=== PATIENT | female | born 1985 | race Caucasian/White ===

== ENCOUNTER 2017-02-18 | Emergency (ER) | payer MEDICAID ==
[2017-02-18 01:05] LABS: Basophils % (Auto) 0.9 % (0.0-1.8); Eosinophils % (Auto) 1.6 % (0.0-4.3); Hematocrit 39.5 % (30.3-42.9); Hemoglobin 12.8 gm/dl (10.1-14.3); Mean Corpuscular HGB Conc 32 % (30-34); Mean Corpuscular Hemoglobin 28 pg (28-32); Mean Corpuscular Volume 88 fl (79-97); Platelet Count 276 K/mm3 (140-440); Red Blood Count 4.52 M/mm3 (3.65-5.03); Red Cell Distribution Width 15.6 % (13.2-15.2); White Blood Count 7.6 K/mm3 (4.5-11.0)
[2017-02-18 01:28] LABS: Anion Gap 19 mmol/L; BUN/Creatinine Ratio 8.75; Blood Urea Nitrogen 7 mg/dL (7-17); Calcium 9.7 mg/dL (8.4-10.2); Carbon Dioxide 25 mmol/L (22-30); Chloride 97.4 mmol/L (98-107); Glucose 105 mg/dL (65-100); Sodium 138 mmol/L (137-145)
[2017-02-18] MEDS ORDERED: K-DUR PO ONE ×2 (10:22→10:45)
[2017-02-18] MEDS ORDERED: NACL 0.9% 1000 ML 1,000 ML IV ONE (10:34)
[2017-02-18] MEDS ORDERED: TYLENOL PO ONE (10:34)
[2017-02-18] MEDS ORDERED: MORPHINE IV ONE (10:34)
--- NOTE | 2017-02-18 10:34 | Emergency Department Report ---
ED General Adult HPI - General Chief complaint: Chest Pain Stated complaint: CHEST PAIN Time Seen by Provider: 02/18/17 10:11 Source: patient, EMS, RN notes reviewed, old records reviewed Mode of arrival: Ambulatory Limitations: No Limitations - History of Present Illness Initial comments: This is a 31-year-old female. She is previously unknown to me. She reports a past medical history of obesity, hypertension, myasthenia gravis. The patient presents to ER with 2 complaints. The patient's first complaint is dental pain. It is in the bilateral lower posterior molars. It is sharp and achy. It increases with chewing and with hot and cold liquids. It decreases with rest. There is no stridor or dysphonia. The patient's other complaint is chest pain. The chest pain is left-sided. It is around the left breast and nipple. It does not radiate to the back, arms or neck. There is no nausea, vomiting or diaphoresis. There is no leg pain. There is no leg swelling. No recent trips greater than 4 hours. Patient describes nonspecific shortness of breath. Of note, patient recently admitted to the hospital for chest pain risk stratification, and had a negative nuclear stress test. EMS documents that the patient had reproducible chest wall pain, and also the patient appeared to be quite anxious. The chest pain does not have any exacerbating or relieving factors. -: Gradual, days(s) Location: mouth, chest Severity scale (0 -10): 6 Quality: aching Consistency: intermittent Improves with: other (as per history of present illness) Worsens with: other (as per history of present illness) Associated Symptoms: chest pain. denies: confusion, loss of appetite, malaise, nausea/vomiting, rash, syncope, weakness - Related Data Home Medications Medication Instructions Recorded Confirmed Last Taken Hydrochlorothiazide [HCTZ] 25 mg PO QDAY 02/11/17 02/11/17 Unknown Pyridostigmine [Mestinon] 2 tab PO Q6H 02/11/17 02/11/17 Unknown azaTHIOprine [Imuran] 50 mg PO BID 02/11/17 02/11/17 Unknown predniSONE [Deltasone] 40 mg PO QDAY 02/11/17 02/11/17 Unknown Previous Rx's Medication Instructions Recorded Last Taken Type Chlorhexidine Mouthwash [Peridex] 15 ml MM BID #1 bottle 02/18/17 Unknown Rx Potassium Chloride [K-Dur] 20 meq PO BID #20 tab 02/18/17 Unknown Rx oxyCODONE [Roxicodone] 5 mg PO Q6HR PRN #15 tablet 02/18/17 Unknown Rx Allergies Allergy/AdvReac Type Severity Reaction Status Date / Time naproxen sodium [From Aleve] Allergy Swelling Verified 02/11/17 13:30 ED Review of Systems ROS: Stated complaint: CHEST PAIN Other details as noted in HPI Constitutional: denies: fever, malaise, weakness Eyes: denies: vision change ENT: dental pain. denies: epistaxis Respiratory: shortness of breath Cardiovascular: chest pain Gastrointestinal: denies: vomiting Genitourinary: as per HPI Musculoskeletal: as per HPI Skin: as per HPI Neurological: as per HPI Psychiatric: as per HPI, anxiety ED Past Medical Hx - Past Medical History Hx Congestive Heart Failure: No Hx Diabetes: No Hx Asthma: No Hx COPD: No Additional medical history: Myasthenia Gravis - Surgical History Additional Surgical History: Thymas Gland surgery 2011 - Social History Smoking Status: Unknown if ever smoked - Medications Home Medications: Home Medications Medication Instructions Recorded Confirmed Last Taken Type Hydrochlorothiazide [HCTZ] 25 mg PO QDAY 02/11/17 02/11/17 Unknown History Pyridostigmine [Mestinon] 2 tab PO Q6H 02/11/17 02/11/17 Unknown History azaTHIOprine [Imuran] 50 mg PO BID 02/11/17 02/11/17 Unknown History predniSONE [Deltasone] 40 mg PO QDAY 02/11/17 02/11/17 Unknown History Chlorhexidine Mouthwash [Peridex] 15 ml MM BID #1 bottle 02/18/17 Unknown Rx Potassium Chloride [K-Dur] 20 meq PO BID #20 tab 02/18/17 Unknown Rx oxyCODONE [Roxicodone] 5 mg PO Q6HR PRN #15 tablet 02/18/17 Unknown Rx ED Physical Exam - General Limitations: No Limitations General appearance: alert, in no apparent distress - Head Head exam: Present: atraumatic, normocephalic - Eye Eye exam: Present: normal appearance, PERRL, EOMI. Absent: nystagmus - ENT ENT exam: Present: normal exam, normal orophraynx, mucous membranes moist, other (patient has poor dentition. Numerous impacted posterior wisdom teeth are noted. There is no stridor or dysphonia. There is no abscess. There is no elevation of the base of the tongue.) - Neck Neck exam: Present: normal inspection - Respiratory Respiratory exam: Present: normal lung sounds bilaterally, chest wall tenderness (there is no redness, pus or streaking around the breast. There is no nipple discharge.), other (there is reproducible chest wall tenderness. During the chest and breast examination, I am escorted by nurse Silvia Amezcua). Absent: respiratory distress, wheezes, rales, rhonchi, stridor - Cardiovascular Cardiovascular Exam: Present: normal rhythm, tachycardia, normal heart sounds. Absent: systolic murmur, diastolic murmur, rubs, gallop - GI/Abdominal GI/Abdominal exam: Present: soft, normal bowel sounds. Absent: distended, tenderness, guarding, rebound, rigid, pulsatile mass - Extremities Exam Extremities exam: Present: normal inspection, full ROM, normal capillary refill. Absent: tenderness, pedal edema, joint swelling, calf tenderness - Back Exam Back exam: Present: normal inspection, full ROM. Absent: tenderness, CVA tenderness (R), CVA tenderness (L), muscle spasm, paraspinal tenderness, vertebral tenderness - Neurological Exam Neurological exam: Present: alert, oriented X3, normal gait, other (Extraocular movements intact. Tongue midline. No facial droop. Facial sensation intact to light touch in the V1, V2, V3 distribution bilaterally. 5 and 5 strength in 4 extremities.. Sensation is intact to light touch in 4 extremities.). Absent : motor sensory deficit - Psychiatric Psychiatric exam: Present: normal affect, normal mood - Skin Skin exam: Present: warm, dry, intact, normal color. Absent: rash ED Course Vital Signs 02/18/17 02/18/17 02/18/17 00:21 05:57 07:50 Temperature 99.3 F 98.6 F 98.9 F Pulse Rate 115 H 113 H 121 H Respiratory 18 18 20 Rate Blood Pressure 157/111 148/101 159/120 Blood Pressure [Right] O2 Sat by Pulse 99 98 97 Oximetry 02/18/17 02/18/17 02/18/17 07:52 09:29 09:33 Temperature 98.9 F Pulse Rate 121 H 106 H Respiratory 20 20 20 Rate Blood Pressure Blood Pressure 159/120 120/80 [Right] O2 Sat by Pulse 97 100 Oximetry 02/18/17 02/18/17 10:50 12:16 Temperature Pulse Rate 102 H 102 H Respiratory 18 18 Rate Blood Pressure Blood Pressure 134/86 124/56 [Right] O2 Sat by Pulse 100 100 Oximetry ED Medical Decision Making - Lab Data Result diagrams: 02/18/17 00:29 02/18/17 00:29 Vital Signs 02/18/17 02/18/17 02/18/17 00:21 05:57 07:50 Temperature 99.3 F 98.6 F 98.9 F Pulse Rate 115 H 113 H 121 H Respiratory 18 18 20 Rate Blood Pressure 157/111 148/101 159/120 Blood Pressure [Right] O2 Sat by Pulse 99 98 97 Oximetry 02/18/17 02/18/17 02/18/17 07:52 09:29 09:33 Temperature 98.9 F Pulse Rate 121 H 106 H Respiratory 20 20 20 Rate Blood Pressure Blood Pressure 159/120 120/80 [Right] O2 Sat by Pulse 97 100 Oximetry 02/18/17 02/18/17 10:50 12:16 Temperature Pulse Rate 102 H 102 H Respiratory 18 18 Rate Blood Pressure Blood Pressure 134/86 124/56 [Right] O2 Sat by Pulse 100 100 Oximetry Lab Results 02/18/17 02/18/17 02/18/17 Range/Units 00:29 00:29 03:03 WBC 7.6 (4.5-11.0) K/mm3 RBC 4.52 (3.65-5.03) M/mm3 Hgb 12.8 (10.1-14.3) gm/dl Hct 39.5 (30.3-42.9) % MCV 88 (79-97) fl MCH 28 (28-32) pg MCHC 32 (30-34) % RDW 15.6 H (13.2-15.2) % Plt Count 276 (140-440) K/mm3 Lymph % (Auto) 27.6 (13.4-35.0) % [place] % (Auto) 12.0 H (0.0-7.3) % Eos % (Auto) 1.6 (0.0-4.3) % Baso % (Auto) 0.9 (0.0-1.8) % Lymph # 2.1 (1.2-5.4) K/mm3 [place] # 0.9 H (0.0-0.8) K/mm3 Eos # 0.1 (0.0-0.4) K/mm3 Baso # 0.1 (0.0-0.1) K/mm3 Seg Neutrophils % 57.9 (40.0-70.0) % Seg Neutrophils # 4.4 (1.8-7.7) K/mm3 PT (12.2-14.9) Sec. INR (0.87-1.13) D-Dimer (0-234) ng/mlDDU Sodium 138 (137-145) mmol/L Potassium 3.0 L (3.6-5.0) mmol/L Chloride 97.4 L (98-107) mmol/L Carbon Dioxide 25 (22-30) mmol/L Anion Gap 19 mmol/L BUN 7 (7-17) mg/dL Creatinine 0.8 (0.7-1.2) mg/dL Estimated GFR > 60 ml/min BUN/Creatinine Ratio 8.75 % Glucose 105 H (65-100) mg/dL Calcium 9.7 D (8.4-10.2) mg/dL Magnesium (1.7-2.3) mg/dL Troponin T < 0.010 < 0.010 (0.00-0.029) ng/mL HCG, Quant (0-4) mIU/mL 02/18/17 02/18/17 02/18/17 Range/Units 06:44 10:41 10:41 WBC (4.5-11.0) K/mm3 RBC (3.65-5.03) M/mm3 Hgb (10.1-14.3) gm/dl Hct (30.3-42.9) % MCV (79-97) fl MCH (28-32) pg MCHC (30-34) % RDW (13.2-15.2) % Plt Count (140-440) K/mm3 Lymph % (Auto) (13.4-35.0) % [place] % (Auto) (0.0-7.3) % Eos % (Auto) (0.0-4.3) % Baso % (Auto) (0.0-1.8) % Lymph # (1.2-5.4) K/mm3 [place] # (0.0-0.8) K/mm3 Eos # (0.0-0.4) K/mm3 Baso # (0.0-0.1) K/mm3 Seg Neutrophils % (40.0-70.0) % Seg Neutrophils # (1.8-7.7) K/mm3 PT 14.0 (12.2-14.9) Sec. INR 1.03 (0.87-1.13) D-Dimer 154.47 (0-234) ng/mlDDU Sodium (137-145) mmol/L Potassium (3.6-5.0) mmol/L Chloride (98-107) mmol/L Carbon Dioxide (22-30) mmol/L Anion Gap mmol/L BUN (7-17) mg/dL Creatinine (0.7-1.2) mg/dL Estimated GFR ml/min BUN/Creatinine Ratio % Glucose (65-100) mg/dL Calcium (8.4-10.2) mg/dL Magnesium 1.90 (1.7-2.3) mg/dL Troponin T < 0.010 (0.00-0.029) ng/mL HCG, Quant (0-4) mIU/mL 02/18/17 Range/Units 10:41 WBC (4.5-11.0) K/mm3 RBC (3.65-5.03) M/mm3 Hgb (10.1-14.3) gm/dl Hct (30.3-42.9) % MCV (79-97) fl MCH (28-32) pg MCHC (30-34) % RDW (13.2-15.2) % Plt Count (140-440) K/mm3 Lymph % (Auto) (13.4-35.0) % [place] % (Auto) (0.0-7.3) % Eos % (Auto) (0.0-4.3) % Baso % (Auto) (0.0-1.8) % Lymph # (1.2-5.4) K/mm3 [place] # (0.0-0.8) K/mm3 Eos # (0.0-0.4) K/mm3 Baso # (0.0-0.1) K/mm3 Seg Neutrophils % (40.0-70.0) % Seg Neutrophils # (1.8-7.7) K/mm3 PT (12.2-14.9) Sec. INR (0.87-1.13) D-Dimer (0-234) ng/mlDDU Sodium (137-145) mmol/L Potassium (3.6-5.0) mmol/L Chloride (98-107) mmol/L Carbon Dioxide (22-30) mmol/L Anion Gap mmol/L BUN (7-17) mg/dL Creatinine (0.7-1.2) mg/dL Estimated GFR ml/min BUN/Creatinine Ratio % Glucose (65-100) mg/dL Calcium (8.4-10.2) mg/dL Magnesium (1.7-2.3) mg/dL Troponin T (0.00-0.029) ng/mL HCG, Quant < 2 (0-4) mIU/mL - EKG Data -: EKG Interpreted by Me EKG shows normal: sinus rhythm - EKG Data When compared to previous EKG there are: no significant change 02/18/17 12:21 EKG #1 demonstrates sinus tachycardia, 103 beats per minute, left axis deviation, QTC is 445 ms, abnormal EKG, not morphologically consistent with STEMI, appears unchanged when compared to prior EKG from 2016. EKG #2 demonstrates sinus tachycardia, 101 bpm, high left ventricular voltage, left axis deviation, abnormal EKG, not morphologically consistent with STEMI, appears unchanged from priors. - Radiology Data Radiology results: image reviewed interpreted by me: X-ray the chest is negative for acute disease - Medical Decision Making Differential diagnosis: Dentalgia, dental caries, costochondritis, pulmonary embolus, acute coronary syndrome, pneumonia Assessment and plan: 31-year-old female with 2 complaints. In terms of the patient's dental pain, she has some impacted wisdom teeth, and a component of gingivitis. She is protecting her airway. This appears to be an acute on chronic issue, and she is to follow-up with an outpatient dentist. She'll be started on chlorhexidine mouthwash. She has no stridor or dysphonia, and I don't believe she requires emergent imaging at this time. Patient is also given a listing of the dentists who have low cost clinics in the state. In terms of the patient's chest pain, patient has been having chest pain since February 11. Recently had a negative nuclear stress test, EKG unchanged from prior 2, multiple negative troponins, low risk by Wells criteria, d-dimer negative, low risk by INGA score, low risk by heart score. Patient felt improved after the pain medication, and I dont believe she requires readmission for repeat ACS risk stratification. The patient is suitable follow-up with outpatient primary care doctor or train electronic technician. She will be discharged at this time. Hypokalemia is appreciated, this was repleted, she will be discharged with potassium repletion. Critical care attestation.: If time is entered above; I have spent that time in minutes in the direct care of this critically ill patient, excluding procedure time. ED Disposition Clinical Impression: Chest pain, Hypokalemia, Dentalgia Disposition: TO HOME OR SELFCARE Is pt being admited?: No Does the pt Need Aspirin: No Condition: Stable Instructions: Chest Pain (ED), Dental Caries (ED) Additional Instructions: Take the potassium supplementation as directed. Use the chlorhexidine mouthwash as directed. Follow up with a dentist within the next 2-3 weeks. If taking the oxycodone for pain, do not drive, consume alcohol, or make important decisions. Follow-up with the primary care doctor or train electronic technician within the next 2-3 weeks. Return to the ER right away with new pain, worsening pain, migration of pain, fevers, chills, confusion, shortness of breath, intractable nausea or vomiting, inability to tolerate liquid feeds. Prescriptions: Chlorhexidine Mouthwash [Peridex] 15 ml MM BID #1 bottle oxyCODONE [Roxicodone] 5 mg PO Q6HR PRN #15 tablet PRN Reason: Pain Potassium Chloride [K-Dur] 20 meq PO BID #20 tab Referrals: PRIMARY CARE, [Primary Care Provider] - 3-5 Days CIERRA CAICEDO MD [Staff Physician] - 3-5 Days CYNTHIA RUIZ MD [Staff Physician] - 3-5 Days BRYSON DUBOSE MD [Staff Physician] - 3-5 Days [facility] [Outside] - 3-5 Days
[2017-02-18] MEDS ORDERED: NACL 0.9% 1000 ML 1,000 ML ONE (10:44)
[2017-02-18] MEDS ORDERED: MORPHINE ONE (10:44)
[2017-02-18] MEDS ORDERED: TYLENOL ONE (10:45)
[2017-02-18] MEDS ORDERED: ZOFRAN IV ONE (11:30)
[2017-02-18 12:01] LABS: INR 1.03 (0.87-1.13)
[2017-02-18 12:17] VITALS: BP 124/56
--- NOTE | 2017-02-18 12:22 | XRay Report ---
Chest 2 views: Compared to 02/11/17. History: Chest pain. Findings: Normal cardiomediastinal silhouette. Trachea is midline. No consolidation, pneumothorax or pleural effusion. Impression: No acute cardiopulmonary findings.
== END 2017-02-18 14:03 | disposition home or self-care (01) ==
LOC: ED
DX: E87.6 Hypokalemia (principal); K08.89 Other specified disorders of teeth and supporting structures; R07.89 Other chest pain; Z88.8 Allergy status to other drugs, medicaments and biological substances
CPT/HCPCS: 36415; 71020; 80048; 83735; 84484; 84702; 85025; 85379; 85610; 93005; 93010; 96361; 96374; 96375; 99285; J2270; J2405; J7030

== ENCOUNTER 2022-04-25 11:58 | Emergency (ER) | payer MEDICAID, SELFPAY ==
[2022-04-25 14:30] VITALS: BP 142/86
== END 2022-04-26 01:48 | disposition left against medical advice (07) ==
LOC: ED 11:58
DX: M79.606 Pain in leg, unspecified (principal); Z53.21 Procedure and treatment not carried out due to patient leaving prior to being seen by health care provider